=== PATIENT | male | born 1975 | race Caucasian/White ===

== ENCOUNTER 2019-02-15 05:31 | Day surgery (SDC) | payer BC ==
[~2019-02-15] VITALS: Ht 182.9 cm; Wt 161.5 kg
--- NOTE | ~2019-02-15 | O ---
[facility] [place] [address] OPERATIVE REPORT Name: BLANCAKEVON Room #: [facility]..#: [id number] Admission: 02/15/19 ������������������ Attend Phys: Jorge Luis Corea MD Discharge: 02/15/19 ������������������ Date of : 77 Report #: [id number] THIS REPORT FOR: //name// CC: Jorge Luis Corea Physician staff MARCOS ALAN DATE OF SERVICE: 02/15/2019 PREOPERATIVE DIAGNOSES: 1. Left ankle instability. 2. Left ankle synovitis. POSTOPERATIVE DIAGNOSES: 1. Left ankle instability. 2. Left ankle synovitis. PROCEDURE: 1. Left ankle arthroscopic debridement with synovectomy. 2. Left ankle Brostrom-Fitzpatrick lateral ligament reconstruction. SURGEON: Jorge Luis Corea M.D. WOOD ROOM HAND: None. ANESTHESIA: General. ESTIMATED BLOOD LOSS: Minimal. DRAINS: No drains. TOURNIQUET TIME: 70 minutes. DESCRIPTION OF PROCEDURE: The patient brought to the operating room where he was placed under general anesthesia. Once under adequate general anesthesia, his left lower extremity was placed into an arthroscopic thigh support. The left lower extremity was then prepped and draped in a sterile manner. The extremity was elevated, exsanguinated, tourniquet placed to 300 mmHg. An anteromedial and anterolateral arthroscopic portal was made in the usual fashion. Examination of the joint noted significant synovitis in the infrasyndesmotic region and synovectomy was performed there with the arthroscopic shaver. Similarly anteriorly there was significant synovitis and a synovectomy was performed there with the arthroscopic shaver. There was some chondromalacia medially, although not severe, as well as a slight amount anterolaterally. This was debrided with the arthroscopic shaver as well. Once complete, the arthroscopic equipment was removed. The extremity was removed [address] [place] [address] OPERATIVE REPORT Name: KEVON RIOS Room #: DEP SD Rj.#: [id number] Admission: 02/15/19 ������������������ Attend Phys: Jorge Luis Corea MD Discharge: 02/15/19 ������������������ Date of : 77 Report #: [id number] from the arthroscopic thigh support. Curvilinear incision was made just distal to the fibula. Dissection was carried down to the inferior extensor retinaculum, which was identified and tagged for later use. The anterior talofibular ligament and calcaneofibular ligament were then incised through the mid portions. A drill for the internal brace was then placed into the talus and tapped for as well as into the fibula and tapped for. The internal brace was then placed with the ankle held in a neutral position. Excellent fixation was achieved in this manner. We then proceeded and continued with the Brostrom repair with two sutures in the calcaneofibular ligament and 4 in the anterior talofibular ligament repairing them in shortened position with 0 Ethibond suture. The inferior extensor retinaculum was then advanced to the periosteum of the fibula as well with 0 Ethibond suture. The wound was then irrigated copiously and closed with 2-0 Vicryl in subcutaneous tissues and sander were used for the skin. The wounds were dressed with Xeroform, 4 x 4s, and a sterile soft compressive dressing was placed. Tourniquet was let down at approximately 70 minutes. A short leg cast was then placed. Toes were pink and warm with good capillary refill. There were no complications from the procedure. The patient tolerated the procedure well and went to the recovery room without incident. ��������������������������������������������� ���������������������������������������� By: ��������������������������������������������� 1526 1903 Jorge Luis Corea MD /satnam
[~2019-02-15 05:31] MED LIST: AMARYL2 MG PO; ASPIR 8181 MG PO; FLONASE 0.05%50 MCG NASAL; HYDROCHLOROTH12.5 M2 PO; LISINOPRIL10 MG PO; METFORMIN HCL1000 MG PO; MEVACOR10 MG PO; NEURONTIN 300300 M1 PO; PRILOSEC OTC20 MG PO
[2019-02-15 12:51] VITALS: BP 152/88
[2019-02-15 13:05] LABS: CALCIUM 9.3 mg/dL (8.5-10.1); CREATININE 1.3 mg/dL (0.7-1.3); POTASSIUM 4.2 mmol/L (3.5-5.1)
[2019-02-15] MEDS ORDERED: PERCOCET 7.5-31 EACH PO (15:21)
[2019-02-15] MEDS ORDERED: ASA5UEC PO (15:21)
[2019-02-15 15:48] VITALS: BP 152/88
--- NOTE | 2019-02-15 16:24 | EKG ---
[address] [address] ELECTROCARDIOGRAM REPORT Name: KEVON RIOS Room #: 150-10 [facility]..#: [id number] ������������������ Admission: 02/15/19 ������������������ Attend Phys: Jorge Luis Corea MD Discharge: ������������������ Date of : 77 Report #: [id number] ����������������������������������������������������������������� [id number] THIS REPORT FOR: //name// [facility] Test Date: 2019-02-15 Test Time: 12:49:51 Pat Name: KEVON RIOS Department: Room: 150 10 Gender: M [employer]: IBA : 1975 Requested By: Jorge Luis Corea Order Number: [id number] MD: Steve Masters Measurements Intervals [place] Rate: 85 P: 8 GA: 175 QRS: -6 QRSD: 86 T: -5 QT: 378 QTc: 450 Interpretive Statements Sinus rhythm Borderline T abnormalities, inferior leads No previous ECG available for comparison Electronically Signed On 02-15-2019 16:24:02 CDT by Steve Masters [email or web address] ��������������������������������������������� <ELECTRONICALLY SIGNED> ���������������������������������������� By: Steve Masters MD ��������������������������������������������� 02/15/19 1624 1249 Steve Masters MD /EMILY
== END 2019-02-15 16:05 | disposition home or self-care (01) ==
LOC: TBA 05:31 → OR 05:31
PROVIDERS: Orthopaedic Surgery Foot and Ankle Surgery
DX: M25.372 Other instability, left ankle (principal); M65.872 Other synovitis and tenosynovitis, left ankle and foot; I10 Essential (primary) hypertension; E78.5 Hyperlipidemia, unspecified; E11.9 Type 2 diabetes mellitus without complications; K21.9 Gastro-esophageal reflux disease without esophagitis; Z98.890 Other specified postprocedural states; Z79.899 Other long term (current) drug therapy; Z79.82 Long term (current) use of aspirin
CPT/HCPCS: 50010; 50101; 50386; 51038; 51412; 51647; 52120; 55430; 56524; 56526; 56529; 57091; 57103; 57180; 62110; 62900; 70005